=== PATIENT | female | born 1995 | race Caucasian/White ===

== ENCOUNTER 2016-10-26 20:49 | Emergency (ER) | payer OTHER ==
[2016-10-26] MEDS ORDERED: ONDANSETRON 4MG/2ML VIAL (J2405) As Ordered ONE (23:46)
[2016-10-27 00:17] LABS: BASO # 0.2 K/mm3 (0.0-0.2); BASO % 1.3 % (0.0-1.0); EOS # 0.1 K/mm3 (0.0-0.50); EOS % 0.7 % (0.0-3.0); LARGE UNSTAINED CELL # 0.3 K/mm3 (0.0-0.4); LYMPH # 3.8 K/mm3 (1.5-6.5); LYMPH % 27.8 % (24.0-44.0); MEAN CORPUSCULAR HEMOGLOBIN 27.8 pg (27.0-33.0); MEAN CORPUSCULAR HGB CONC 33.5 g/dl (32.0-36.5); MEAN CORPUSCULAR VOLUME 82.9 fl (80.0-96.0); MONO # 0.6 K/mm3 (0.0-0.8); MONO % 4.8 % (0.0-5.0); NEUTROPHILS # 8.2 K/mm3 (1.8-7.7); NEUTROPHILS % 63.4 % (36.0-66.0); PLATELET COUNT, AUTOMATED 242 k/mm3 (150-450); RED CELL DISTRIBUTION WIDTH 14.4 % (11.5-14.5); WHITE BLOOD COUNT 12.9 K/mm3 (4.0-10.0)
[2016-10-27 00:56] LABS: ANION GAP 8 MEQ/L (8-16); BLOOD UREA NITROGEN 9 MG/DL (7-18); CALCIUM LEVEL 8.7 MG/DL (8.5-10.1); CARBON DIOXIDE LEVEL 25 MEQ/L (21-32); CHLORIDE LEVEL 106 MEQ/L (98-107); CREATININE FOR GFR 0.76 MG/DL (0.55-1.02); GLUCOSE, FASTING 79 MG/DL (70-105); HCG, SERUM QUANTITATIVE 9590 MIU/ML; POTASSIUM SERUM 4.1 MEQ/L (3.5-5.1); SODIUM LEVEL 139 MEQ/L (136-145)
--- NOTE | 2016-10-27 01:00 | REPUSA ---
Clinical history: Pain, cramping. Findings: Real-time transabdominal and transvaginal ultrasound images of the pelvis were obtained. An anteverted uterus is noted, measuring 9.6 x 4.2 x 6.2 cm. The uterus demonstrates normal echotexture and echogenicity. There is a single intrauterine gestational sac. The mean sac diameter measures 9.6 mm. No pole is identified at this time. A normal yolk sac is noted. The right ovary measures 3 .3 x 2.7 x 2.3 cm. A right ovarian cyst measures 1.7 x 1.2 x 1.1 cm. The left ovary measures 2.3 x 1. 7 x 2.1 cm. No adnexal masses are seen. Color Doppler flow is seen within both ovaries. There is no e vidence of free fluid. Impression: 1. Single intrauterine gestation with a normal yolk sac. No pole is yet visualized. This is lik fiorella because of the early age of the gestation, although ectopic and missed must be also considered. Follow-up with serial serum beta hCG levels is recommended for further evaluation. 2. Right ovarian corpus luteum cyst.
--- NOTE | 2016-10-27 03:05 | EDDOCDS ---
Physician Documentation [facility] Name: Florinda Vargas Age: 21 yrs Sex: Female : 1995 Arrival Date: 10/26/2016 Time: 20:49 Bed I6 / 28 Private MD: [place] [facility] [place]position: 10/27/16 02:50 Discharged to Home/Self Care. Impression: Vomiting of , unspecified. - Condition is Stable. - Discharge Instructions: Hyperemesis Gravidarum. - Prescriptions for ZOFRAN ODT 4 mg - dissolve 1 tablet by ORAL route 4 times per day As needed do not chew, do not swallow whole; 10 tablet. - Medication Reconciliation, Local Pharmacy Hours form. - Follow up: Private Physician; When: Tomorrow; Reason: Recheck today's complaints, Continuance of care. - Problem is new. - Symptoms have improved. - Notes: USE MEDICATION INSTRUCTED, FOLLOW UP WITH YOUR OB DOCTOR, RETURN TO THE ER IF THE SYMPTOMS WORSEN OR BECOME CONCERNING Historical: - Allergies: No known drug Allergies; - Home Meds: 1. 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 No barriers to communication noted, The patient speaks fluent [place] Islander, Speaks appropriately for age, Preferred Language: [place] Islander. - Family history: Not pertinent. - : The pt / caregiver states he / she is not on anticoagulants. Home medication list is obtained from the patient. - Exposure Risk Screening:: None identified. 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 7 in. gr2 (170.18 cm) (R); Pain 4/10; 23:44 Weight 65 kg / 143.3 lbs (M); kb5 10/27 02:54 BP 110 / 60; Pulse 84; Resp 18; Temp 98.6(O); Pulse Ox 99% on R/A; Pain 0/10; constantin 10/26 23:44 Body Mass Index 22.44 (65.00 kg, 170.18 cm) kb5 MDM: 10/26 23:32 IV Saline Lock ordered. ck7 23:32 NS 0.9% 1000 ml IV at bolus once ordered. ck7 23:32 Ondansetron 4 mg IVP once ordered. ck7 23:32 Misc. Nursing Order ordered. ck7 23:33 US 1st trimester Ordered. EDMS 23:33 CBC with Diff Ordered. EDMS 23:33 MED Profile Ordered. EDMS 23:33 Hcg, Serum Quantitative Ordered. EDMS 23:33 UA Ordered. EDMS 23:33 Urine Culture Ordered. EDMS 23:40 Financial registration complete. pm4 10/27 00:29 [facility] Payment Agreement was scanned into [employer] and attached to record. pm4 00:31 TRANSVAGINAL US Ordered. EDMS 00:31 DUPLEX SCAN LIMITED (DOPPLER) Ordered. EDMS 02:02 CBC with Diff Reviewed. ck7 02:02 MED Profile Reviewed. ck7 02:02 Hcg, Serum Quantitative Reviewed. ck7 02:02 US 1st trimester Reviewed. ck7 02:12 Fluid Challenge ordered. ck7 02:50 UA Reviewed. ck7 Administered Medications: 10/26 23:52 Drug: NS 0.9% 1000 ml [sodium chloride 0.9 % intravenous solution] Route: IV; Rate: lf1 bolus; Site: right antecubital; 10/27 03:02 Follow up: IV Status: Completed infusion; IV Intake: 1000ml lf1 10/26 23:52 Drug: Ondansetron 4 mg [ondansetron HCl 2 mg/mL intravenous solution (2 mL)] Route: lf1 IVP; Site: right antecubital; Signatures: Dispatcher [employer] EDCO April Galloway RN RN lf1 Nick Jaime, OLIVER-C RPA-Cck7 Newton Syed, Elie Reg pm4 The chart was reviewed and I authenticate all verbal orders and agree with the evaluation and treatment provided.Attachments: 10/27 00:29 [facility] [place] Payment Agreement pm4 MTDD
--- NOTE | 2016-10-27 03:05 | EDDOCDS ---
Nurse's Notes [facility] Name: Florinda True Age: 21 yrs Sex: Female : 1995 Arrival Date: 10/26/2016 Time: 20:49 Bed I6 / 28 Private MD: DARREL Tellez Diagnosis: Vomiting of , unspecified Presentation: 10/26 20:59 Presenting complaint: Patient states: Nausea and vomiting that has been ongoing for one lf1 week with intermittent right upper quadrant pain. 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 Presenting complaint:. Adult Sepsis Screening: The patient does not have new or worsening altered mentation. Patient's respiratory rate is less than 22. Systolic blood pressure is greater than 100. Patient has a qSOFA score of 0- Negative Sepsis Screen. Suicide/Homicide risk assessment- the patient denies having any suicidal and/or homicidal ideations and does not present with any other emotional, behavioral or mental health complaints. 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 Transition of care: patient was not received from another setting of care. 20:59 Acuity: NICHOLAS Level 3 lf1 20:59 Method Of Arrival: Walkin/Carried/Asstd lf1 21:06 Presenting complaint: Pt reports that she would like an ultrasound to find out how far lf1 along she is in her as she is unsure of the dates. 21:06 Presenting complaint: Pt reports that she is intending to terminate her with lf1 [facility] - has an ultrasound scheduled for Wednesday. Triage Assessment: 21:04 General: Appears in no apparent distress, comfortable, Behavior is cooperative. Pain: lf1 Location: right upper quadrant Pain currently is 6 out of 10 on a pain scale. HIV screening NA for this visit Offered previously. Neurological: Level of Consciousness is awake, alert, Oriented to person, place, time. EENT: No deficits noted. Respiratory: Respiratory effort is even, unlabored. GI: Reports nausea, vomiting. Derm: Skin is normal. Injury Description: No known injury. 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 No barriers to communication noted, The patient speaks fluent Korean, Speaks appropriately for age, Preferred Language: Korean. - Family history: Not pertinent. - : The pt / caregiver states he / she is not on anticoagulants. Home medication list is obtained from the patient. - Exposure Risk Screening:: None identified. Screenin/31 02:59 Screening information is obtained from the patient. Fall risk: No risks identified. lf1 Assistance ADL's: requires no assistance with activities of daily living. Abuse/DV Screen: The patient / caregiver reports he/she is: not in a situation that causes fear, pain or injury. Nutritional screening: No deficits noted. Advance Directives: Currently, there is no health care proxy. home support is adequate. Assessment: 10/26 23:52 Adult Sepsis Screening: The patient does not have new or worsening altered mentation. lf1 Patient's respiratory rate is less than 22. Systolic blood pressure is greater than 100. Patient has a qSOFA score of 0- Negative Sepsis Screen. General: Appears in no apparent distress, comfortable, Behavior is cooperative. Pain: Location: abdomen Pain currently is 2 out of 10 on a pain scale. Quality of pain is described as crampy. Neurological: Level of Consciousness is awake, alert, Oriented to person, place, time. Respiratory: Respiratory effort is even, unlabored. GI: Abdomen is non- distended Bowel sounds present X 4 quads. Abd is soft and non tender Reports nausea, vomiting. :. Derm: Skin is normal. 10/27 00:44 General: Appears in no apparent distress, comfortable, Behavior is appropriate for age, jmb cooperative, Patient laying on stretcher, no voiced complaints at this time,. . Neurological: Level of Consciousness is awake, alert, obeys commands, Oriented to person, place, time. Respiratory: Airway is patent Respiratory effort is even, unlabored, Respiratory pattern is regular, symmetrical. 01:37 General: Appears in no apparent distress, comfortable, Behavior is appropriate for age, jmb cooperative. Neurological: Level of Consciousness is awake, alert, obeys commands, Oriented to person, place, time. Respiratory: Airway is patent Respiratory effort is even, unlabored, Respiratory pattern is regular, symmetrical. 02:59 General: Appears comfortable, Behavior is cooperative. Pain: Location: abdomen Pain lf1 currently is 3 out of 10 on a pain scale. Quality of pain is described as crampy. Neurological: Level of Consciousness is awake, alert. EENT: No deficits noted. Respiratory: Respiratory effort is even, unlabored. GI: Reports nausea. Derm: Skin is normal. Vital Signs: 10/26 20:51 BP 113 / 66; Pulse 89; Resp 18 S; Temp 97.2(O); Pulse Ox 98% on R/A; Height 5 ft. 7 in. gr2 (170.18 cm) (R); Pain 4/10; 23:44 Weight 65 kg (M); kb5 10/27 02:54 BP 110 / 60; Pulse 84; Resp 18; Temp 98.6(O); Pulse Ox 99% on R/A; Pain 0/10; constantin 10/26 23:44 Body Mass Index 22.44 (65.00 kg, 170.18 cm) kb5 Vitals: 10/26 20:51 Log In Time: October 26, 2016 at 20:51. gr2 ED Course: 20:51 Patient visited by Zach Cavanaugh. gr2 20:51 Rosalinda [facility] [place] is Private Physician. gr2 20:51 Patient moved to Waiting gr2 20:54 Patient visited by Zach Cavanaugh. gr2 20:54 Patient moved to Pre RCE gr2 21:02 Triage Initiated lf1 22:35 Patient moved to Triage 2 ar3 23:19 Nick Jaime RPA-C is [facility]. ck7 23:19 Matias Godoy DO is Attending Physician. ck7 23:19 Patient visited by Nick Jaime RPA-C. ck7 23:28 Patient moved to I cz 23:44 Patient visited by Arnav Hurd PCA. kb5 23:53 Hcg, Serum Quantitative Sent. rw1 23:53 MED Profile Sent. rw1 23:53 CBC with Diff Sent. rw1 23:53 Inserted saline lock: 20 gauge in right antecubital area and blood collected. The rw1 patient tolerated the procedure well. 10/27 00:02 Patient moved to Ultrasound dmg 00:29 [facility] Payment Agreement was scanned into [employer] and attached to record. pm4 00:41 Patient moved to I6 / dmg 00:45 Patient visited by Kevin Alvarez RN. jmb 01:15 Patient visited by Nick Jaime RPA-C. ck7 01:20 US 1st trimester Returned. EDMS 01:25 Urine Culture Sent. jmb 01:25 UA Sent. jmb 01:37 Patient visited by Kevin Alvarez RN. jmb 02:12 Patient visited by Nick Jaime RPA-C. ck7 02:44 Patient visited by Nick Jaime RPA-C. ck7 02:59 Patient visited by April Galloway RN. lf1 02:59 The patient / caregiver is instructed regarding the plan of care and ED course. lf1 02:59 Discontinued IV lock intact, bleeding controlled, pressure dressing applied, No lf1 redness/swelling at site. No procedures done that require assistance. Administered Medications: 10/26 23:52 Drug: NS 0.9% 1000 ml [sodium chloride 0.9 % intravenous solution] Route: IV; Rate: lf1 bolus; Site: right antecubital; 10/27 03:02 Follow up: IV Status: Completed infusion; IV Intake: 1000ml lf1 10/26 23:52 Drug: Ondansetron 4 mg [ondansetron HCl 2 mg/mL intravenous solution (2 mL)] Route: lf1 IVP; Site: right antecubital; Intake: 10/27 03:02 IV: 1000.00ml; Total: 1000.00ml. lf1 Order Results: Lab Order: CBC with Diff; SPEC'M 10/26/16 23:50 Test: WHITE BLOOD COUNT; Value: 12.9; Range: 4.0-10.0; Abnormal: Above high normal; Units: K/mm3; Status: F Test: RED BLOOD COUNT; Value: 5.10; Range: 4.00-5.40; Units: M/mm3; Status: F Test: HEMOGLOBIN; Value: 14.2; Range: 12.0-16.0; Units: g/dl; Status: F Test: HEMATOCRIT; Value: 42.3; Range: 36.0-47.0; Units: %; Status: F Test: MEAN CORPUSCULAR VOLUME; Value: 82.9; Range: 80.0-96.0; Units: fl; Status: F Test: MEAN CORPUSCULAR HEMOGLOBIN; Value: 27.8; Range: 27.0-33.0; Units: pg; Status: F Test: MEAN CORPUSCULAR HGB CONC; Value: 33.5; Range: 32.0-36.5; Units: g/dl; Status: F Test: RED CELL DISTRIBUTION WIDTH; Value: 14.4; Range: 11.5-14.5; Units: %; Status: F Test: PLATELET COUNT, AUTOMATED; Value: 242; Range: 150-450; Units: k/mm3; Status: F Test: NEUTROPHILS %; Value: 63.4; Range: 36.0-66.0; Units: %; Status: F Test: LYMPH %; Value: 27.8; Range: 24.0-44.0; Units: %; Status: F Test: MONO %; Value: 4.8; Range: 0.0-5.0; Units: %; Status: F Test: EOS %; Value: 0.7; Range: 0.0-3.0; Units: %; Status: F Test: BASO %; Value: 1.3; Range: 0.0-1.0; Abnormal: Above high normal; Units: %; Status: F Test: LARGE UNSTAINED CELL %; Value: 2.0; Range: 0.0-4.0; Units: %; Status: F Test: NEUTROPHILS #; Value: 8.2; Range: 1.8-7.7; Abnormal: Above high normal; Units: K/mm3; Status: F Test: LYMPH #; Value: 3.8; Range: 1.5-6.5; Units: K/mm3; Status: F Test: MONO #; Value: 0.6; Range: 0.0-0.8; Units: K/mm3; Status: F Test: EOS #; Value: 0.1; Range: 0.0-0.50; Units: K/mm3; Status: F Test: BASO #; Value: 0.2; Range: 0.0-0.2; Units: K/mm3; Status: F Test: LARGE UNSTAINED CELL #; Value: 0.3; Range: 0.0-0.4; Units: K/mm3; Status: F Lab Order: MED Profile; SPEC'M 10/26/16 23:50 Test: GLUCOSE, FASTING; Value: 79; Range: 70-105; Units: MG/DL; Status: F Test: BLOOD UREA NITROGEN; Value: 9; Range: 7-18; Units: MG/DL; Status: F Test: CREATININE FOR GFR; Value: 0.76; Range: 0.55-1.02; Units: MG/DL; Status: F Test: SODIUM LEVEL; Value: 139; Range: 136-145; Units: MEQ/L; Status: F Test: POTASSIUM SERUM; Value: 4.1; Range: 3.5-5.1; Units: MEQ/L; Status: F Test: CHLORIDE LEVEL; Value: 106; Range: 98-107; Units: MEQ/L; Status: F Test: CARBON DIOXIDE LEVEL; Value: 25; Range: 21-32; Units: MEQ/L; Status: F Test: ANION GAP; Value: 8; Range: 8-16; Units: MEQ/L; Status: F Test: CALCIUM LEVEL; Value: 8.7; Range: 8.5-10.1; Units: MG/DL; Status: F Lab Order: Hcg, Serum Quantitative; SPEC'M 10/26/16 23:50 Test: HCG, SERUM QUANTITATIVE; Value: 9590; Units: MIU/ML; Status: F Test Note: ; GESTATIONAL AGE APPROXIMATE HCG RANGE (MIU/ML) 0.2-1 WEEK 5-50 1-2 WEEKS 50-500 2-3 WEEKS 100-5,000 3-4 WEEKS 500-10,000 4-5 WEEKS 1,000-50,000 5-6 WEEKS 10,000-100,000 6-8 WEEKS 15,000-200,000 2-3 MONTHS 10,000-100,000 NON FEMALES LESS THAN 3.0 Patient samples may contain human heterophilic antibodies that could react with immunoassays to give falsely elevated or depressed results. This assay has been designed to minimize interference from heterophilic antibodies. Elevated hCG levels have also been associated with trophoblastic disease and nontrophoblastic neoplasms. The possibility of having these diseases should be considered before a diagnosis of is made. This test is not intended for use as a surrogate marker for aiding in the diagnosis or monitoring the treatment of cancer patients. Siem[employer] [place] Cryotherapy methodology. Lab Order: UA; SPEC'M 10/27/16 01:22 Test: APPEARANCE, URINE; Value: CLEAR; Range: CLEAR; Status: F Test: COLOR, URINE; Value: YELLOW; Range: YELLOW; Status: F Test: PH,URINE; Value: 5.0; Range: 5.0-9.0; Units: UNITS; Status: F Test: SPECIFIC GRAVITY URINE AUTO; Value: 1.020; Range: 1.002-1.035; Status: F Test: PROTEIN, URINE AUTO; Value: NEGATIVE; Range: NEGATIVE; Units: mg/dL; Status: F Test: GLUCOSE, URINE (UA) AUTO; Value: NEGATIVE; Range: NEGATIVE; Units: mg/dL; Status: F Test: KETONE, URINE AUTO; Value: 1+; Range: NEGATIVE; Abnormal: Above high normal; Units: mg/dL; Status: F Test: UROBILINOGEN, URINE AUTO; Value: 0.2; Range: 0.0-2.0; Units: mg/dL; Status: F Test: BILIRUBIN, URINE AUTO; Value: NEGATIVE; Range: NEGATIVE; Status: F Test: NITRITE, URINE AUTO; Value: NEGATIVE; Range: NEGATIVE; Status: F Test: LEUKOCYTE ESTERASE, URINE AUTO; Value: TRACE; Range: NEGATIVE; Abnormal: Above high normal; Status: F Test: BLOOD, URINE BLOOD; Value: NEGATIVE; Range: NEGATIVE; Status: F Test: WBC, URINE AUTO; Value: 1; Range: 0-3; Units: /HPF; Status: F Test: RBC, URINE AUTO; Value: 1; Range: 0-3; Units: /HPF; Status: F Test: BACTERIA, URINE AUTO; Value: NEGATIVE; Range: NEGATIVE; Status: F Test: SQUAMOUS EPITHELIAL CELL UR AU; Value: 4; Range: 0-6; Units: /HPF; Status: F Test: MUCUS, URINE; Value: SMALL; Range: NEGATIVE; Status: F Test: HYALINE CAST, URINE AUTO; Value: 0; Range: 0-1; Units: /LPF; Status: F Radiology Order: US 1st trimester Test: US 1st trimester REASON FOR EXAMINATION: PELVIC CRAMPING, R/O DEMISE; ; Clinical history: Pain, cramping.; Findings: Real-time transabdominal and transvaginal ultrasound images of the pelvis were obtained. An; anteverted uterus is noted, measuring 9.6 x 4.2 x 6.2 cm. The uterus demonstrates normal echotexture; and echogenicity. There is a single intrauterine gestational sac. The mean sac diameter measures 9.6; mm. No pole is identified at this time. A normal yolk sac is noted. The right ovary measures 3; .3 x 2.7 x 2.3 cm. A right ovarian cyst measures 1.7 x 1.2 x 1.1 cm. The left ovary measures 2.3 x 1.; 7 x 2.1 cm. No adnexal masses are seen. Color Doppler flow is seen within both ovaries. There is no e; vidence of free fluid.; Impression:; 1. Single intrauterine gestation with a normal yolk sac. No pole is yet visualized. This is lik; fiorella because of the early age of the gestation, although ectopic and missed must be; also considered. Follow-up with serial serum beta hCG levels is recommended for further evaluation.; 2. Right ovarian corpus luteum cyst.; ; Outcome: 02:50 Discharge ordered by Provider. ck7 03:03 Discharge Assessment: Patient awake, alert and oriented x 3. No cognitive and/or lf1 functional deficits noted. Patient verbalized understanding of disposition instructions. Patient awake and alert. Oriented to person, place and time. Patient verbalized understanding of disposition instructions. patient administered narcotics - no. The following High Risk Discharge criteria are identified: None. Discharged to home ambulatory, with friend. Condition: improved. Discharge instructions given to patient, Instructed on discharge instructions, follow up and referral plans. medication usage, Demonstrated understanding of instructions, medications, Pt was receptive of discharge instructions/ teaching. Prescriptions given X 1. Ultrasound Study completed. Property :Personal belongings accompany Pt. 03:04 Patient left the ED. lf1 Signatures: Dispatcher Med[employer] EDMS Desmond Sun, RN RN Aleyda Jiang Robert, LPN [employer] PROJECT MANAGER rw1 Arnav Hurd, ROLLER ROLLER kb5 April Galloway RN RN lf1 Yuliet Quispe, ROLLER ROLLER ar3 Leidy Coats, ROLLER ROLLER constantin Nick Jaime, RPA-C RPA-Cck7 Zach Cavanaugh2 Kevin Alvarez,RN RN annab Newton Syed, Reg Reg pm4 MTDD
--- NOTE | 2016-10-29 04:05 | EDDOCDS ---
Physician Documentation [facility] Name: Florinda Vargas Age: 21 yrs Sex: Female : 1995 Arrival Date: 10/26/2016 Time: 20:49 Bed I6 / 28 Private MD: Rosalinda [facility] [place] Disposition: 10/27/16 02:50 Discharged to Home/Self Care. Impression: Vomiting of , unspecified. - Condition is Stable. - Discharge Instructions: Hyperemesis Gravidarum. - Prescriptions for ZOFRAN ODT 4 mg - dissolve 1 tablet by ORAL route 4 times per day As needed do not chew, do not swallow whole; 10 tablet. - Medication Reconciliation, Local Pharmacy Hours form. - Follow up: Private Physician; When: Tomorrow; Reason: Recheck today's complaints, Continuance of care. - Problem is new. - Symptoms have improved. - Notes: USE MEDICATION INSTRUCTED, FOLLOW UP WITH YOUR OB DOCTOR, RETURN TO THE ER IF THE SYMPTOMS WORSEN OR BECOME CONCERNING Historical: - Allergies: No known drug Allergies; - Home Meds: 1. 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 No barriers to communication noted, The patient speaks fluent Chadian, Speaks appropriately for age, Preferred Language: Chadian. - Family history: Not pertinent. - : The pt / caregiver states he / she is not on anticoagulants. Home medication list is obtained from the patient. - Exposure Risk Screening:: None identified. 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 7 in. gr2 (170.18 cm) (R); Pain 4/10; 23:44 Weight 65 kg / 143.3 lbs (M); kb5 10/27 02:54 BP 110 / 60; Pulse 84; Resp 18; Temp 98.6(O); Pulse Ox 99% on R/A; Pain 0/10; constantin 10/26 23:44 Body Mass Index 22.44 (65.00 kg, 170.18 cm) kb5 MDM: 10/26 23:32 IV Saline Lock ordered. ck7 23:32 NS 0.9% 1000 ml IV at bolus once ordered. ck7 23:32 Ondansetron 4 mg IVP once ordered. ck7 23:32 Misc. Nursing Order ordered. ck7 23:33 US 1st trimester Ordered. EDMS 23:33 CBC with Diff Ordered. EDMS 23:33 MED Profile Ordered. EDMS 23:33 Hcg, Serum Quantitative Ordered. EDMS 23:33 UA Ordered. EDMS 23:33 Urine Culture Ordered. EDMS 23:40 Financial registration complete. pm4 10/27 00:29 [facility] [place] Agreement was scanned into [employer] and attached to record. pm4 00:31 TRANSVAGINAL US Ordered. EDMS 00:31 DUPLEX SCAN LIMITED (DOPPLER) Ordered. EDMS 02:02 CBC with Diff Reviewed. ck7 02:02 MED Profile Reviewed. ck7 02:02 Hcg, Serum Quantitative Reviewed. ck7 02:02 US 1st trimester Reviewed. ck7 02:12 Fluid Challenge ordered. ck7 02:50 UA Reviewed. ck7 11:42 T-Sheet-- Draft Copy was scanned into [employer] and attached to record. gb Administered Medications: 10/26 23:52 Drug: NS 0.9% 1000 ml [sodium chloride 0.9 % intravenous solution] Route: IV; Rate: lf1 bolus; Site: right antecubital; 10/27 03:02 Follow up: IV Status: Completed infusion; IV Intake: 1000ml lf1 10/26 23:52 Drug: Ondansetron 4 mg [ondansetron HCl 2 mg/mL intravenous solution (2 mL)] Route: lf1 IVP; Site: right antecubital; Signatures: Dispatcher [employer] EDMS Bethany Negro, Reg Reg gb April Galloway,RN RN lf1 Nick Jaime, RPA-C RPA-Cck7 Newton Syed, Reg Reg pm4 The chart was reviewed and I authenticate all verbal orders and agree with the evaluation and treatment provided.Attachments: 10/27 00:29 [facility] [place] Agreement pm4 11:42 T-Sheet-- Draft Copy gb Chart Complete MTDD
--- NOTE | 2016-10-29 04:05 | EDDOCDS ---
Physician Documentation [facility] Name: Florinda Vargas Age: 21 yrs Sex: Female : 1995 Arrival Date: 10/26/2016 Time: 20:49 Bed I6 / 28 Private MD: Rosalinda [facility] Disposition: 10/27/16 02:50 Discharged to Home/Self Care. Impression: Vomiting of , unspecified. - Condition is Stable. - Discharge Instructions: Hyperemesis Gravidarum. - Prescriptions for ZOFRAN ODT 4 mg - dissolve 1 tablet by ORAL route 4 times per day As needed do not chew, do not swallow whole; 10 tablet. - Medication Reconciliation, Local Pharmacy Hours form. - Follow up: Private Physician; When: Tomorrow; Reason: Recheck today's complaints, Continuance of care. - Problem is new. - Symptoms have improved. - Notes: USE MEDICATION INSTRUCTED, FOLLOW UP WITH YOUR OB DOCTOR, RETURN TO THE ER IF THE SYMPTOMS WORSEN OR BECOME CONCERNING Historical: - Allergies: No known drug Allergies; - Home Meds: 1. 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 No barriers to communication noted, The patient speaks fluent Salvadorean, Speaks appropriately for age, Preferred Language: Salvadorean. - Family history: Not pertinent. - : The pt / caregiver states he / she is not on anticoagulants. Home medication list is obtained from the patient. - Exposure Risk Screening:: None identified. 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 7 in. gr2 (170.18 cm) (R); Pain 4/10; 23:44 Weight 65 kg / 143.3 lbs (M); kb5 10/27 02:54 BP 110 / 60; Pulse 84; Resp 18; Temp 98.6(O); Pulse Ox 99% on R/A; Pain 0/10; constantin 10/26 23:44 Body Mass Index 22.44 (65.00 kg, 170.18 cm) kb5 MDM: 10/26 23:32 IV Saline Lock ordered. ck7 23:32 NS 0.9% 1000 ml IV at bolus once ordered. ck7 23:32 Ondansetron 4 mg IVP once ordered. ck7 23:32 Misc. Nursing Order ordered. ck7 23:33 US 1st trimester Ordered. EDMS 23:33 CBC with Diff Ordered. EDMS 23:33 MED Profile Ordered. EDMS 23:33 Hcg, Serum Quantitative Ordered. EDMS 23:33 UA Ordered. EDMS 23:33 Urine Culture Ordered. EDMS 23:40 Financial registration complete. pm4 10/27 00:29 [facility] Payment Agreement was scanned into CloudAmbo and attached to record. pm4 00:31 TRANSVAGINAL US Ordered. EDMS 00:31 DUPLEX SCAN LIMITED (DOPPLER) Ordered. EDMS 02:02 CBC with Diff Reviewed. ck7 02:02 MED Profile Reviewed. ck7 02:02 Hcg, Serum Quantitative Reviewed. ck7 02:02 US 1st trimester Reviewed. ck7 02:12 Fluid Challenge ordered. ck7 02:50 UA Reviewed. ck7 11:42 T-Sheet-- Draft Copy was scanned into CloudAmbo and attached to record. gb Administered Medications: 10/26 23:52 Drug: NS 0.9% 1000 ml [sodium chloride 0.9 % intravenous solution] Route: IV; Rate: lf1 bolus; Site: right antecubital; 10/27 03:02 Follow up: IV Status: Completed infusion; IV Intake: 1000ml lf1 10/26 23:52 Drug: Ondansetron 4 mg [ondansetron HCl 2 mg/mL intravenous solution (2 mL)] Route: lf1 IVP; Site: right antecubital; Signatures: Dispatcher MedHost EDMS Bethany Negro, Reg Reg gb April Galloway,RN RN lf1 Nick Jaime, RPA-C RPA-Cck7 Newton Syed, Reg Reg pm4 The chart was reviewed and I authenticate all verbal orders and agree with the evaluation and treatment provided.Attachments: 10/27 00:29 [facility] Payment Agreement pm4 11:42 T-Sheet-- Draft Copy gb Chart Complete MTDD
--- NOTE | 2016-10-29 04:06 | EDDOCDS ---
Nurse's Notes [facility] Name: Florinda True Age: 21 yrs Sex: Female : 1995 Arrival Date: 10/26/2016 Time: 20:49 Bed I6 / 28 Private MD: DARREL Tellez Diagnosis: Vomiting of , unspecified Presentation: 10/26 20:59 Presenting complaint: Patient states: Nausea and vomiting that has been ongoing for one lf1 week with intermittent right upper quadrant pain. 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 Presenting complaint:. Adult Sepsis Screening: The patient does not have new or worsening altered mentation. Patient's respiratory rate is less than 22. Systolic blood pressure is greater than 100. Patient has a qSOFA score of 0- Negative Sepsis Screen. Suicide/Homicide risk assessment- the patient denies having any suicidal and/or homicidal ideations and does not present with any other emotional, behavioral or mental health complaints. 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 Transition of care: patient was not received from another setting of care. 20:59 Acuity: NICHOLAS Level 3 lf1 20:59 Method Of Arrival: Walkin/Carried/Asstd lf1 21:06 Presenting complaint: Pt reports that she would like an ultrasound to find out how far lf1 along she is in her as she is unsure of the dates. 21:06 Presenting complaint: Pt reports that she is intending to terminate her with lf1 [facility] - has an ultrasound scheduled for Wednesday. Triage Assessment: 21:04 General: Appears in no apparent distress, comfortable, Behavior is cooperative. Pain: lf1 Location: right upper quadrant Pain currently is 6 out of 10 on a pain scale. HIV screening NA for this visit Offered previously. Neurological: Level of Consciousness is awake, alert, Oriented to person, place, time. EENT: No deficits noted. Respiratory: Respiratory effort is even, unlabored. GI: Reports nausea, vomiting. Derm: Skin is normal. Injury Description: No known injury. 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 No barriers to communication noted, The patient speaks fluent Syriac, Speaks appropriately for age, Preferred Language: Syriac. - Family history: Not pertinent. - : The pt / caregiver states he / she is not on anticoagulants. Home medication list is obtained from the patient. - Exposure Risk Screening:: None identified. Screenin/31 02:59 Screening information is obtained from the patient. Fall risk: No risks identified. lf1 Assistance ADL's: requires no assistance with activities of daily living. Abuse/DV Screen: The patient / caregiver reports he/she is: not in a situation that causes fear, pain or injury. Nutritional screening: No deficits noted. Advance Directives: Currently, there is no health care proxy. home support is adequate. Assessment: 10/26 23:52 Adult Sepsis Screening: The patient does not have new or worsening altered mentation. lf1 Patient's respiratory rate is less than 22. Systolic blood pressure is greater than 100. Patient has a qSOFA score of 0- Negative Sepsis Screen. General: Appears in no apparent distress, comfortable, Behavior is cooperative. Pain: Location: abdomen Pain currently is 2 out of 10 on a pain scale. Quality of pain is described as crampy. Neurological: Level of Consciousness is awake, alert, Oriented to person, place, time. Respiratory: Respiratory effort is even, unlabored. GI: Abdomen is non- distended Bowel sounds present X 4 quads. Abd is soft and non tender Reports nausea, vomiting. :. Derm: Skin is normal. 10/27 00:44 General: Appears in no apparent distress, comfortable, Behavior is appropriate for age, jmb cooperative, Patient laying on stretcher, no voiced complaints at this time,. . Neurological: Level of Consciousness is awake, alert, obeys commands, Oriented to person, place, time. Respiratory: Airway is patent Respiratory effort is even, unlabored, Respiratory pattern is regular, symmetrical. 01:37 General: Appears in no apparent distress, comfortable, Behavior is appropriate for age, jmb cooperative. Neurological: Level of Consciousness is awake, alert, obeys commands, Oriented to person, place, time. Respiratory: Airway is patent Respiratory effort is even, unlabored, Respiratory pattern is regular, symmetrical. 02:59 General: Appears comfortable, Behavior is cooperative. Pain: Location: abdomen Pain lf1 currently is 3 out of 10 on a pain scale. Quality of pain is described as crampy. Neurological: Level of Consciousness is awake, alert. EENT: No deficits noted. Respiratory: Respiratory effort is even, unlabored. GI: Reports nausea. Derm: Skin is normal. Vital Signs: 10/26 20:51 BP 113 / 66; Pulse 89; Resp 18 S; Temp 97.2(O); Pulse Ox 98% on R/A; Height 5 ft. 7 in. gr2 (170.18 cm) (R); Pain 4/10; 23:44 Weight 65 kg (M); kb5 10/27 02:54 BP 110 / 60; Pulse 84; Resp 18; Temp 98.6(O); Pulse Ox 99% on R/A; Pain 0/10; constantin 10/26 23:44 Body Mass Index 22.44 (65.00 kg, 170.18 cm) kb5 Vitals: 10/26 20:51 Log In Time: October 26, 2016 at 20:51. gr2 ED Course: 20:51 Patient visited by Zach Cavanaugh. gr2 20:51 Rosalinda [facility] is Private Physician. gr2 20:51 Patient moved to Waiting gr2 20:54 Patient visited by Zach Cavanaugh. gr2 20:54 Patient moved to Pre RCE gr2 21:02 Triage Initiated lf1 22:35 Patient moved to Triage 2 ar3 23:19 Nick Jaime RPA-C [facility] ck7 23:19 Matias Godoy DO is Attending Physician. ck7 23:19 Patient visited by Nick Jaime RPA-C. ck7 23:28 Patient moved to I cz 23:44 Patient visited by Arnav Hurd PCA. kb5 23:53 Hcg, Serum Quantitative Sent. rw1 23:53 MED Profile Sent. rw1 23:53 CBC with Diff Sent. rw1 23:53 Inserted saline lock: 20 gauge in right antecubital area and blood collected. The rw1 patient tolerated the procedure well. 10/27 00:02 Patient moved to Ultrasound dmg 00:29 [facility] Payment Agreement was scanned into Meddle and attached to record. pm4 00:41 Patient moved to I6 / dmg 00:45 Patient visited by Kevin Alvarez RN. jmb 01:15 Patient visited by Nick Jaime RPA-C. ck7 01:20 US 1st trimester Returned. EDMS 01:25 Urine Culture Sent. jmb 01:25 UA Sent. jmb 01:37 Patient visited by Kevin Alvarez RN. jmb 02:12 Patient visited by Ncik Jaime RPA-C. ck7 02:44 Patient visited by Nick Jaime RPA-C. ck7 02:59 Patient visited by April Galloway RN. lf1 02:59 The patient / caregiver is instructed regarding the plan of care and ED course. lf1 02:59 Discontinued IV lock intact, bleeding controlled, pressure dressing applied, No lf1 redness/swelling at site. No procedures done that require assistance. 11:42 T-Sheet-- Draft Copy was scanned into Meddle and attached to record. gb Administered Medications: 10/26 23:52 Drug: NS 0.9% 1000 ml [sodium chloride 0.9 % intravenous solution] Route: IV; Rate: lf1 bolus; Site: right antecubital; 10/27 03:02 Follow up: IV Status: Completed infusion; IV Intake: 1000ml lf1 10/26 23:52 Drug: Ondansetron 4 mg [ondansetron HCl 2 mg/mL intravenous solution (2 mL)] Route: lf1 IVP; Site: right antecubital; Intake: 10/27 03:02 IV: 1000.00ml; Total: 1000.00ml. lf1 Order Results: Lab Order: CBC with Diff; SPEC'M 10/26/16 23:50 Test: WHITE BLOOD COUNT; Value: 12.9; Range: 4.0-10.0; Abnormal: Above high normal; Units: K/mm3; Status: F Test: RED BLOOD COUNT; Value: 5.10; Range: 4.00-5.40; Units: M/mm3; Status: F Test: HEMOGLOBIN; Value: 14.2; Range: 12.0-16.0; Units: g/dl; Status: F Test: HEMATOCRIT; Value: 42.3; Range: 36.0-47.0; Units: %; Status: F Test: MEAN CORPUSCULAR VOLUME; Value: 82.9; Range: 80.0-96.0; Units: fl; Status: F Test: MEAN CORPUSCULAR HEMOGLOBIN; Value: 27.8; Range: 27.0-33.0; Units: pg; Status: F Test: MEAN CORPUSCULAR HGB CONC; Value: 33.5; Range: 32.0-36.5; Units: g/dl; Status: F Test: RED CELL DISTRIBUTION WIDTH; Value: 14.4; Range: 11.5-14.5; Units: %; Status: F Test: PLATELET COUNT, AUTOMATED; Value: 242; Range: 150-450; Units: k/mm3; Status: F Test: NEUTROPHILS %; Value: 63.4; Range: 36.0-66.0; Units: %; Status: F Test: LYMPH %; Value: 27.8; Range: 24.0-44.0; Units: %; Status: F Test: MONO %; Value: 4.8; Range: 0.0-5.0; Units: %; Status: F Test: EOS %; Value: 0.7; Range: 0.0-3.0; Units: %; Status: F Test: BASO %; Value: 1.3; Range: 0.0-1.0; Abnormal: Above high normal; Units: %; Status: F Test: LARGE UNSTAINED CELL %; Value: 2.0; Range: 0.0-4.0; Units: %; Status: F Test: NEUTROPHILS #; Value: 8.2; Range: 1.8-7.7; Abnormal: Above high normal; Units: K/mm3; Status: F Test: LYMPH #; Value: 3.8; Range: 1.5-6.5; Units: K/mm3; Status: F Test: MONO #; Value: 0.6; Range: 0.0-0.8; Units: K/mm3; Status: F Test: EOS #; Value: 0.1; Range: 0.0-0.50; Units: K/mm3; Status: F Test: BASO #; Value: 0.2; Range: 0.0-0.2; Units: K/mm3; Status: F Test: LARGE UNSTAINED CELL #; Value: 0.3; Range: 0.0-0.4; Units: K/mm3; Status: F Lab Order: MED Profile; [facility] 10/26/16 23:50 Test: GLUCOSE, FASTING; Value: 79; Range: 70-105; Units: MG/DL; Status: F Test: BLOOD UREA NITROGEN; Value: 9; Range: 7-18; Units: MG/DL; Status: F Test: CREATININE FOR GFR; Value: 0.76; Range: 0.55-1.02; Units: MG/DL; Status: F Test: SODIUM LEVEL; Value: 139; Range: 136-145; Units: MEQ/L; Status: F Test: POTASSIUM SERUM; Value: 4.1; Range: 3.5-5.1; Units: MEQ/L; Status: F Test: CHLORIDE LEVEL; Value: 106; Range: 98-107; Units: MEQ/L; Status: F Test: CARBON DIOXIDE LEVEL; Value: 25; Range: 21-32; Units: MEQ/L; Status: F Test: ANION GAP; Value: 8; Range: 8-16; Units: MEQ/L; Status: F Test: CALCIUM LEVEL; Value: 8.7; Range: 8.5-10.1; Units: MG/DL; Status: F Lab Order: Hcg, Serum Quantitative; [facility] 10/26/16 23:50 Test: HCG, SERUM QUANTITATIVE; Value: 9590; Units: MIU/ML; Status: F Test Note: ; GESTATIONAL AGE APPROXIMATE HCG RANGE (MIU/ML) 0.2-1 WEEK 5-50 1-2 WEEKS 50-500 2-3 WEEKS 100-5,000 3-4 WEEKS 500-10,000 4-5 WEEKS 1,000-50,000 5-6 WEEKS 10,000-100,000 6-8 WEEKS 15,000-200,000 2-3 MONTHS 10,000-100,000 NON FEMALES LESS THAN 3.0 Patient samples may contain human heterophilic antibodies that could react with immunoassays to give falsely elevated or depressed results. This assay has been designed to minimize interference from heterophilic antibodies. Elevated hCG levels have also been associated with trophoblastic disease and nontrophoblastic neoplasms. The possibility of having these diseases should be considered before a diagnosis of is made. This test is not intended for use as a surrogate marker for aiding in the diagnosis or monitoring the treatment of cancer patients. [email or web address] methodology. Lab Order: UA; SPEC'M 10/27/16 01:22 Test: APPEARANCE, URINE; Value: CLEAR; Range: CLEAR; Status: F Test: COLOR, URINE; Value: YELLOW; Range: YELLOW; Status: F Test: PH,URINE; Value: 5.0; Range: 5.0-9.0; Units: UNITS; Status: F Test: SPECIFIC GRAVITY URINE AUTO; Value: 1.020; Range: 1.002-1.035; Status: F Test: PROTEIN, URINE AUTO; Value: NEGATIVE; Range: NEGATIVE; Units: mg/dL; Status: F Test: GLUCOSE, URINE (UA) AUTO; Value: NEGATIVE; Range: NEGATIVE; Units: mg/dL; Status: F Test: KETONE, URINE AUTO; Value: 1+; Range: NEGATIVE; Abnormal: Above high normal; Units: mg/dL; Status: F Test: UROBILINOGEN, URINE AUTO; Value: 0.2; Range: 0.0-2.0; Units: mg/dL; Status: F Test: BILIRUBIN, URINE AUTO; Value: NEGATIVE; Range: NEGATIVE; Status: F Test: NITRITE, URINE AUTO; Value: NEGATIVE; Range: NEGATIVE; Status: F Test: LEUKOCYTE ESTERASE, URINE AUTO; Value: TRACE; Range: NEGATIVE; Abnormal: Above high normal; Status: F Test: BLOOD, URINE BLOOD; Value: NEGATIVE; Range: NEGATIVE; Status: F Test: WBC, URINE AUTO; Value: 1; Range: 0-3; Units: /HPF; Status: F Test: RBC, URINE AUTO; Value: 1; Range: 0-3; Units: /HPF; Status: F Test: BACTERIA, URINE AUTO; Value: NEGATIVE; Range: NEGATIVE; Status: F Test: SQUAMOUS EPITHELIAL CELL UR AU; Value: 4; Range: 0-6; Units: /HPF; Status: F Test: MUCUS, URINE; Value: SMALL; Range: NEGATIVE; Status: F Test: HYALINE CAST, URINE AUTO; Value: 0; Range: 0-1; Units: /LPF; Status: F Lab Order: Urine Culture; SPEC'M 10/27/16 01:22 Test: URINE CULTURE; Value: <EXTERNAL COMMENT eCWMed> FULL REPORT IN LAB NOTES (eCW and Medent).; Status: F Test: URINE CULTURE; Value: URINE CULTURE RESULT NO GROWTH; Status: F Radiology Order: US 1st trimester Test: US 1st trimester REASON FOR EXAMINATION: PELVIC CRAMPING, R/O DEMISE; ; Clinical history: Pain, cramping.; Findings: Real-time transabdominal and transvaginal ultrasound images of the pelvis were obtained. An; anteverted uterus is noted, measuring 9.6 x 4.2 x 6.2 cm. The uterus demonstrates normal echotexture; and echogenicity. There is a single intrauterine gestational sac. The mean sac diameter measures 9.6; mm. No pole is identified at this time. A normal yolk sac is noted. The right ovary measures 3; .3 x 2.7 x 2.3 cm. A right ovarian cyst measures 1.7 x 1.2 x 1.1 cm. The left ovary measures 2.3 x 1.; 7 x 2.1 cm. No adnexal masses are seen. Color Doppler flow is seen within both ovaries. There is no e; vidence of free fluid.; Impression:; 1. Single intrauterine gestation with a normal yolk sac. No pole is yet visualized. This is lik; fiorella because of the early age of the gestation, although ectopic and missed must be; also considered. Follow-up with serial serum beta hCG levels is recommended for further evaluation.; 2. Right ovarian corpus luteum cyst.; ; Outcome: 02:50 Discharge ordered by Provider. ck7 03:03 Discharge Assessment: Patient awake, alert and oriented x 3. No cognitive and/or lf1 functional deficits noted. Patient verbalized understanding of disposition instructions. Patient awake and alert. Oriented to person, place and time. Patient verbalized understanding of disposition instructions. patient administered narcotics - no. The following High Risk Discharge criteria are identified: None. Discharged to home ambulatory, with friend. Condition: improved. Discharge instructions given to patient, Instructed on discharge instructions, follow up and referral plans. medication usage, Demonstrated understanding of instructions, medications, Pt was receptive of discharge instructions/ teaching. Prescriptions given X 1. Ultrasound Study completed. Property :Personal belongings accompany Pt. 03:04 Patient left the ED. lf1 Signatures: Dispatcher MedHost EDMS Desmond Sun, RN RN Aleyda Jiang dmBethany Heredia, Reg Reg gb Jaycee,Loi,HAY FARMER HAY FARMER rw1 Arnav Hurd, TEACHER PRIVATE TEACHER PRIVATE kb5 April Galloway RN RN lf1 Yuliet Quispe, TEACHER PRIVATE TEACHER PRIVATE ar3 Leidy Coats, TEACHER PRIVATE TEACHER PRIVATE constantin Nick Jaime, RPA-C RPA-Cck7 Zach Cavanaugh gr2 Kevin Alvarez RN RN jmb Montondo, Paul, Reg Reg pm4 Chart Complete BARBY
== END 2016-10-27 03:04 | disposition home or self-care (01) ==
LOC: M ED 20:49
DX: O21.9 Vomiting of pregnancy, unspecified (principal); O26.891 Other specified pregnancy related conditions, first trimester; N83.11 Corpus luteum cyst of right ovary; Z85.841 Personal history of malignant neoplasm of brain; Z87.891 Personal history of nicotine dependence; Z3A.01 Less than 8 weeks gestation of pregnancy
CPT/HCPCS: 36415; 76801; 76817; 80048; 81001; 84702; 85025; 87086; 93976; 96361; 96374; 99284; J2405